=== PATIENT | male | born 1995 | race Caucasian/White ===

== ENCOUNTER 2017-10-21 13:08 | Emergency (ER) | payer MEDICAID ==
[~2017-10-21] VITALS: Ht 167.6 cm; Wt 104.5 kg
[2017-10-21] MEDS ORDERED: ONDANSETRON HCL 4MG/2ML VIAL IV STA (14:43)
[2017-10-21] MEDS ORDERED: MORPHINE SULFATE 4 MG/ML CPJ (NOT FOR IM USE) IV STA (14:43)
[2017-10-21] MEDS ORDERED: SODIUM CHLORIDE 0.9% 1,000 ML IV ONE (14:43)
[2017-10-21] MEDS ORDERED: FAMOTIDINE 20MG/2ML VIAL IV STA (14:43)
[2017-10-21 14:52] LABS: CLARITY URINE CLEAR (CLEAR); COLOR URINE DARK YELLOW (YELLOW); KETONES URINE TRACE (NEGATIVE); LEUKOCYTE ESTERASE URINE TRACE (NEGATIVE); NITRITE URINE NEGATIVE (NEGATIVE); OCCULT BLOOD URINE NEGATIVE (NEGATIVE); PROTEIN URINE NEGATIVE (NEGATIVE)
[2017-10-21 14:52] LABS: BASOPHILS % 0.3 % (0.0-2.0); EOSINOPHILS % 1.9 % (0.0-5.0); HEMOGLOBIN. 16.3 g/dL (14.0-18.0); LYMPHOCYTES % 12.9 % (20.0-50.0); MEAN CORPUSCULAR HEMOGLOBIN 29.8 pg (28.0-32.0); MEAN CORPUSCULAR VOLUME 84.1 fL (80.0-94.0); MONOCYTES % 5.2 % (2.0-8.0); NEUTROPHILS % 79.7 % (40.0-76.0); PLATELET 156 x1000/uL (130-400); RED BLOOD CELL COUNT 5.46 mill/uL (4.7-6.1); RED CELL DISTRIBUTION WIDTH 13.3 % (11.6-14.6)
[2017-10-21 14:58] LABS: INR 1.1; PROTHROMBIN TIME 11.1 sec (9.4-11.6)
[2017-10-21 14:59] LABS: CHLORIDE 108 mEq/L (98-107)
[2017-10-21] MEDS ORDERED: IOHEXOL-300 100 ML BOTTLE ONE (16:43)
[2017-10-21 18:33] VITALS: BP 136/65
== END 2017-10-21 18:34 | disposition home or self-care (01) ==
LOC: ER 13:52
DX: K80.70 Calculus of gallbladder and bile duct without cholecystitis without obstruction (principal); I88.0 Nonspecific mesenteric lymphadenitis; R03.0 Elevated blood-pressure reading, without diagnosis of hypertension; K76.0 Fatty (change of) liver, not elsewhere classified; F17.210 Nicotine dependence, cigarettes, uncomplicated
CPT/HCPCS: 36415; 74177; 80053; 81003; 83605; 83690; 85025; 85610; 96361; 96374; 96375; 99285; J2270; J2405; J3490; J7030; Q9967; Z7610

== ENCOUNTER 2019-06-08 11:23 | Emergency (ER) | payer MEDICAID ==
[~2019-06-08] VITALS: Ht 167.6 cm; Wt 113.0 kg
[2019-06-08] MEDS ORDERED: FAMOTIDINE 20MG TABLET PO ONE (12:30)
[2019-06-08] MEDS ORDERED: PREDNISONE 20MG TABLET PO SCH (12:30)
[2019-06-08] MEDS ORDERED: DIPHENHYDRAMINE 25MG CAPSULE PO ONE (12:30)
[2019-06-08 13:16] VITALS: BP 118/77
== END 2019-06-08 13:17 | disposition home or self-care (01) ==
LOC: ER 11:23
DX: T78.40XA Allergy, unspecified, initial encounter (principal); X58.XXXA Exposure to other specified factors, initial encounter
CPT/HCPCS: 99284; J7512; Q0163

== ENCOUNTER 2023-06-10 02:15 | Emergency (ER) | payer MEDICAID, OTHER ==
[~2023-06-10] VITALS: Ht 170.2 cm; Wt 109.0 kg
[2023-06-10 02:39] VITALS: BP 163/118; PULSE 110; RESP 14; TEMP 97.9; O2SAT 97
== END 2023-06-10 07:44 | disposition left against medical advice (07) ==
LOC: ER 02:15
DX: M54.9 Dorsalgia, unspecified (principal); Z53.21 Procedure and treatment not carried out due to patient leaving prior to being seen by health care provider
CPT/HCPCS: 99281